=== PATIENT | female | born 1935 | race African-American/Black ===

== ENCOUNTER 2022-03-21 10:28 | Inpatient (IN) | payer MEDICARE, MEDICAID ==
[~2022-03-21] VITALS: Ht 152.4 cm; Wt 57.6 kg
[2022-03-21] MEDS ORDERED: NITROGLYCERIN 0.4MG TABLET SL SL PRN (11:00)
[2022-03-21] MEDS ORDERED: ASPIRIN 81MG TABLET PO ONE (11:00)
[2022-03-21 11:35] LABS: HEMATOCRIT. 46.7 % (36.0-48.0); HEMOGLOBIN. 15.6 g/dL (12.0-16.0); MEAN CORPUSCULAR HEMOGLOBIN 27.5 pg (28.0-32.0); MEAN CORPUSCULAR VOLUME 82.2 fL (81.0-99.0); MEAN PLATELET VOLUME 8.3 fl (7.4-10.4); PLATELET 206 x1000/uL (130-400); RED BLOOD CELL COUNT 5.68 mill/uL (4.2-5.4); RED CELL DISTRIBUTION WIDTH 19.9 % (11.6-14.6)
[2022-03-21 11:39] LABS: CHLORIDE 104 mEq/L (98-107)
[2022-03-21 11:41] LABS: PARTIAL THROMBOPLASTIN TIME < 21.0 sec (23.4-31.0); PROTHROMBIN TIME 11.2 sec (9.6-11.0)
[2022-03-21] MEDS ORDERED: HEPARIN 5000 UNITS/ML VIAL IV ONE (12:45)
[2022-03-21] MEDS ORDERED: HEPARIN 25,000 UNITS PREMIX 250 ML IV ONE (12:45)
[2022-03-21 12:46] LABS: PLATELET ESTIMATE NORMAL
[2022-03-21] MEDS ORDERED: HEPARIN 5000 UNITS/ML VIAL IV PRN ×2 (13:15)
[2022-03-21] MEDS ORDERED: HEPARIN 25,000 UNITS PREMIX 250 ML IV PRN (13:15)
[2022-03-21] MEDS ORDERED: HEPARIN 5000 UNITS/ML VIAL IV NR (13:30)
[2022-03-21] MEDS ORDERED: MORPHINE SULFATE 2 MG/ML CPJ (NOT FOR IM USE) IV PRN (17:15)
[2022-03-21] MEDS ORDERED: ONDANSETRON HCL 4MG/2ML INJ IV PRN (17:15)
[2022-03-21] MEDS ORDERED: ACETAMINOPHEN 325MG TABLET PO PRN (17:15)
[2022-03-21] MEDS ORDERED: CLONIDINE 0.1MG TABLET PO PRN (17:15)
[2022-03-21] MEDS ORDERED: DIPHENHYDRAMINE 50MG/ML VIAL IV PRN (17:15)
[2022-03-21] MEDS ORDERED: NALOXONE HCL 0.4MG/ML VIAL IV PRN (17:30)
[2022-03-21 22:07] VITALS: BP 115/58
[2022-03-21 22:45] VITALS: BP 115/85
[2022-03-22] VITALS (7 sets, daily range): BP systolic 116–166; BP diastolic 76–98
[2022-03-22] MEDS: IPRATROPIUM/ALBUTEROL 0.5-3(2.5)MG/3ML NEB HHN PRN (00:24)
[2022-03-22] MEDS ORDERED: DEXTROSE 50% WATER 50ML SYRINGE IV PRN (01:00)
[2022-03-22] MEDS ORDERED: ASPI-1497 PO (05:15)
[2022-03-22] MEDS ORDERED: METO-396 PO (05:15)
[2022-03-22] MEDS: BLOOD SUGAR DIAGNOSTIC STRIP TEST SCH ×4 (06:07→20:29)
[2022-03-22] MEDS: INSULIN LISPRO 100 UNITS/ML SUBCUT SCH ×4 (06:25→20:29)
[2022-03-22 06:42] LABS: BASOPHILS % 0.8 % (0.0-2.0); EOSINOPHILS % 1.9 % (0.0-5.0); HEMATOCRIT. 41.3 % (36.0-48.0); HEMOGLOBIN. 13.7 g/dL (12.0-16.0); LYMPHOCYTES % 14.3 % (20.0-50.0); MEAN CORPUSCULAR HEMOGLOBIN 27.5 pg (28.0-32.0); MEAN CORPUSCULAR VOLUME 82.7 fL (81.0-99.0); MEAN PLATELET VOLUME 8.1 fl (7.4-10.4); MONOCYTES % 10.3 % (2.0-8.0); NEUTROPHILS % 72.7 % (40.0-76.0); PLATELET 140 x1000/uL (130-400); RED BLOOD CELL COUNT 4.99 mill/uL (4.2-5.4); RED CELL DISTRIBUTION WIDTH 19.8 % (11.6-14.6)
[2022-03-22 06:46] LABS: CHLORIDE 108 mEq/L (98-107)
[2022-03-22] MEDS: FUROSEMIDE 40MG/4ML VIAL IV SCH (09:14)
[2022-03-22] MEDS: NITROGLYCERIN OINT 1GM/INCH UDPKT TD SCH ×2 (14:12→21:56)
[2022-03-22] MEDS ORDERED: CARVEDILOL 3.125 MG TABLET PO SCH (21:00)
[2022-03-23] VITALS (7 sets, daily range): BP systolic 148–173; BP diastolic 71–92
[2022-03-23] MEDS: BLOOD SUGAR DIAGNOSTIC STRIP TEST SCH ×4 (06:08→20:47)
[2022-03-23] MEDS: INSULIN LISPRO 100 UNITS/ML SUBCUT SCH ×4 (06:08→20:47)
[2022-03-23] MEDS: NITROGLYCERIN OINT 1GM/INCH UDPKT TD SCH ×3 (06:10→21:09)
[2022-03-23 06:18] LABS: BASOPHILS % 0.6 % (0.0-2.0); EOSINOPHILS % 0.9 % (0.0-5.0); HEMATOCRIT. 40.3 % (36.0-48.0); HEMOGLOBIN. 13.4 g/dL (12.0-16.0); LYMPHOCYTES % 10.6 % (20.0-50.0); MEAN CORPUSCULAR HEMOGLOBIN 27.4 pg (28.0-32.0); MEAN CORPUSCULAR VOLUME 82.3 fL (81.0-99.0); MEAN PLATELET VOLUME 8.4 fl (7.4-10.4); MONOCYTES % 9.5 % (2.0-8.0); NEUTROPHILS % 78.4 % (40.0-76.0); PLATELET 137 x1000/uL (130-400); RED CELL DISTRIBUTION WIDTH 19.6 % (11.6-14.6)
[2022-03-23] MEDS: FUROSEMIDE 40MG/4ML VIAL IV SCH (10:12)
[2022-03-23] MEDS: SPIRONOLACTONE 25MG TABLET PO SCH (10:12)
[2022-03-23] MEDS: ASPIRIN 81MG EC TABLET PO SCH (10:12)
[2022-03-23] MEDS ORDERED: MAGNESIUM 2 G PREMIX 50 ML IV NR (10:15)
[2022-03-23 12:04] LABS: BG BASE EXCESS 6.6 mmol/L (-2.0-2.0); BG CARBOXYHEMOGLOBIN 0.6 % (0.5-1.5); BG DEOXYHEMOGLOBIN 26.4 % (0.0-5.0); BG FRACTION INSPIRED OXYGEN 21; BG HCO3 ACT 37.8 mmol/L (22.0-26.0); BG METHEMOGLOBIN 0.3 % (0.0-1.5); BG OXYGEN SATURATION 73.4 % (92.0-98.5); BG OXYHEMOGLOBIN 72.7 % (94.0-97.0); BG PCO2 87.9 mmHg (35.0-45.0); BG PH 7.251 (7.350-7.450); BG PO2 39.6 mmHg (75.0-100.0); BG SAMPLE SITE RIGHT RADIAL; BG TOTAL HEMOGLOBIN 15.6 g/dL (12.0-18.0); BG VENT MODE ROOM AIR
[2022-03-23 15:14] LABS: BG BASE EXCESS 11.4 mmol/L (-2.0-2.0); BG CARBOXYHEMOGLOBIN 0.3 % (0.5-1.5); BG DEOXYHEMOGLOBIN 1.8 % (0.0-5.0); BG FRACTION INSPIRED OXYGEN 50; BG HCO3 ACT 42.4 mmol/L (22.0-26.0); BG METHEMOGLOBIN 0.3 % (0.0-1.5); BG OXYGEN SATURATION 98.2 % (92.0-98.5); BG OXYHEMOGLOBIN 97.6 % (94.0-97.0); BG PCO2 90.1 mmHg (35.0-45.0); BG PO2 134.8 mmHg (75.0-100.0); BG SAMPLE SITE LEFT RADIAL; BG TOTAL HEMOGLOBIN 14.8 g/dL (12.0-18.0); BG TOTAL RESPIRATORY RATE 18 b/min; BG VENT MODE MASK - BIPAP
[2022-03-23] MEDS ORDERED: ACETAZOLAMIDE 500MG ER CAPSULE PO NR (16:00)
[2022-03-23] MEDS: LOSARTAN POTASSIUM 50 MG TABLET PO SCH (17:00)
[2022-03-23 18:15] LABS: BG BASE EXCESS 5.9 mmol/L (-2.0-2.0); BG CARBOXYHEMOGLOBIN 0.9 % (0.5-1.5); BG DEOXYHEMOGLOBIN 1.6 % (0.0-5.0); BG METHEMOGLOBIN 0.4 % (0.0-1.5); BG OXYGEN SATURATION 98.4 % (92.0-98.5); BG OXYHEMOGLOBIN 97.1 % (94.0-97.0); BG PCO2 88.3 mmHg (35.0-45.0); BG PO2 134.7 mmHg (75.0-100.0); BG SAMPLE SITE LEFT BRACHIAL; BG VENT MODE MASK - BIPAP
[2022-03-23] MEDS: METHYLPREDNISOLONE SOD SUCC 40 MG/ML VIAL IV SCH (19:18)
[2022-03-23] MEDS: CARVEDILOL 6.25 MG TABLET PO SCH (20:47)
[2022-03-24 00:10] VITALS: BP 140/98
[2022-03-24 04:10] VITALS: BP 124/74
[2022-03-24] MEDS: METHYLPREDNISOLONE SOD SUCC 40 MG/ML VIAL IV SCH ×2 (05:50→18:19)
[2022-03-24] MEDS: NITROGLYCERIN OINT 1GM/INCH UDPKT TD SCH (05:50)
[2022-03-24] MEDS: INSULIN LISPRO 100 UNITS/ML SUBCUT SCH ×4 (06:21→20:28)
[2022-03-24] MEDS: BLOOD SUGAR DIAGNOSTIC STRIP TEST SCH ×4 (06:21→20:28)
[2022-03-24 07:16] LABS: BASOPHILS % 0.4 % (0.0-2.0); EOSINOPHILS % 0.9 % (0.0-5.0); HEMATOCRIT. 41.6 % (36.0-48.0); HEMOGLOBIN. 13.9 g/dL (12.0-16.0); LYMPHOCYTES % 7.2 % (20.0-50.0); MEAN CORPUSCULAR HEMOGLOBIN 27.3 pg (28.0-32.0); MEAN CORPUSCULAR VOLUME 81.6 fL (81.0-99.0); MEAN PLATELET VOLUME 8.8 fl (7.4-10.4); NEUTROPHILS % 89.5 % (40.0-76.0); PLATELET 123 x1000/uL (130-400); RED CELL DISTRIBUTION WIDTH 19.2 % (11.6-14.6)
[2022-03-24 08:00] VITALS: BP 131/76
[2022-03-24] MEDS: LOSARTAN POTASSIUM 50 MG TABLET PO SCH ×2 (08:04→17:40)
[2022-03-24] MEDS: SPIRONOLACTONE 25MG TABLET PO SCH (08:04)
[2022-03-24] MEDS: FUROSEMIDE 40MG/4ML VIAL IV SCH (08:05)
[2022-03-24] MEDS: CARVEDILOL 6.25 MG TABLET PO SCH ×2 (08:05→20:28)
[2022-03-24] MEDS: ASPIRIN 81MG EC TABLET PO SCH (08:05)
[2022-03-24 08:47] LABS: BG BASE EXCESS 7.6 mmol/L (-2.0-2.0); BG CARBOXYHEMOGLOBIN 0.2 % (0.5-1.5); BG DEOXYHEMOGLOBIN 1.9 % (0.0-5.0); BG FRACTION INSPIRED OXYGEN 32; BG HCO3 ACT 38.2 mmol/L (22.0-26.0); BG METHEMOGLOBIN 0.3 % (0.0-1.5); BG OXYGEN SATURATION 98.1 % (92.0-98.5); BG OXYHEMOGLOBIN 97.6 % (94.0-97.0); BG PCO2 88.2 mmHg (35.0-45.0); BG PH 7.255 (7.350-7.450); BG PO2 125.4 mmHg (75.0-100.0); BG SAMPLE SITE LEFT RADIAL; BG TOTAL HEMOGLOBIN 13.9 g/dL (12.0-18.0); BG VENT MODE NASAL CANNULA
[2022-03-24 12:00] VITALS: BP 124/79
[2022-03-24 16:00] VITALS: BP 111/62
[2022-03-24] MEDS: IPRATROPIUM/ALBUTEROL 0.5-3(2.5)MG/3ML NEB HHN PRN (16:08)
[2022-03-24 16:41] LABS: BG BASE EXCESS 9.7 mmol/L (-2.0-2.0); BG CARBOXYHEMOGLOBIN 0.5 % (0.5-1.5); BG DEOXYHEMOGLOBIN 3.9 % (0.0-5.0); BG HCO3 ACT 37.9 mmol/L (22.0-26.0); BG METHEMOGLOBIN 0.1 % (0.0-1.5); BG OXYGEN SATURATION 96.1 % (92.0-98.5); BG OXYHEMOGLOBIN 95.5 % (94.0-97.0); BG PCO2 67.4 mmHg (35.0-45.0); BG PH 7.368 (7.350-7.450); BG PO2 86.6 mmHg (75.0-100.0); BG SAMPLE SITE RIGHT BRACHIAL; BG TOTAL HEMOGLOBIN 14.5 g/dL (12.0-18.0); BG VENT MODE MASK - BIPAP
[2022-03-24 20:00] VITALS: BP 124/66
[2022-03-25] VITALS (14 sets, daily range): BP systolic 107–146; BP diastolic 51–91
[2022-03-25 05:50] LABS: HEMATOCRIT. 42.1 % (36.0-48.0); HEMOGLOBIN. 13.8 g/dL (12.0-16.0); MEAN CORPUSCULAR HEMOGLOBIN 27.4 pg (28.0-32.0); MEAN CORPUSCULAR VOLUME 83.6 fL (81.0-99.0); MEAN PLATELET VOLUME 8.9 fl (7.4-10.4); PLATELET 147 x1000/uL (130-400); RED BLOOD CELL COUNT 5.04 mill/uL (4.2-5.4); RED CELL DISTRIBUTION WIDTH 19.3 % (11.6-14.6)
[2022-03-25] MEDS: METHYLPREDNISOLONE SOD SUCC 40 MG/ML VIAL IV SCH ×2 (06:00→17:28)
[2022-03-25] MEDS: BLOOD SUGAR DIAGNOSTIC STRIP TEST SCH ×4 (07:30→21:45)
[2022-03-25] MEDS: INSULIN LISPRO 100 UNITS/ML SUBCUT SCH ×4 (08:00→21:00)
[2022-03-25] MEDS: ASPIRIN 81MG EC TABLET PO SCH (08:54)
[2022-03-25] MEDS: LOSARTAN POTASSIUM 50 MG TABLET PO SCH ×2 (08:55→17:29)
[2022-03-25] MEDS: CARVEDILOL 6.25 MG TABLET PO SCH ×2 (08:57→21:46)
[2022-03-25] MEDS: FUROSEMIDE 40MG/4ML VIAL IV SCH (08:58)
[2022-03-25] MEDS: SPIRONOLACTONE 25MG TABLET PO SCH (08:58)
[2022-03-25 14:56] LABS: BG BASE EXCESS 9.1 mmol/L (-2.0-2.0); BG CARBOXYHEMOGLOBIN 1.1 % (0.5-1.5); BG DEOXYHEMOGLOBIN 4.1 % (0.0-5.0); BG FRACTION INSPIRED OXYGEN 28; BG HCO3 ACT 38.9 mmol/L (22.0-26.0); BG METHEMOGLOBIN 0.2 % (0.0-1.5); BG OXYGEN SATURATION 95.8 % (92.0-98.5); BG OXYHEMOGLOBIN 94.6 % (94.0-97.0); BG PCO2 80.6 mmHg (35.0-45.0); BG PH 7.302 (7.350-7.450); BG PO2 87.5 mmHg (75.0-100.0); BG SAMPLE SITE RIGHT BRACHIAL; BG TOTAL HEMOGLOBIN 14.4 g/dL (12.0-18.0); BG VENT MODE NASAL CANNULA
[2022-03-25 17:25] LABS: PLATELET ESTIMATE NORMAL
[2022-03-25 17:38] LABS: BG BASE EXCESS 7.2 mmol/L (-2.0-2.0); BG CARBOXYHEMOGLOBIN 1.2 % (0.5-1.5); BG FRACTION INSPIRED OXYGEN 40; BG HCO3 ACT 35.9 mmol/L (22.0-26.0); BG METHEMOGLOBIN 0.3 % (0.0-1.5); BG OXYGEN SATURATION 94.9 % (92.0-98.5); BG OXYHEMOGLOBIN 93.5 % (94.0-97.0); BG PCO2 69.6 mmHg (35.0-45.0); BG PO2 76.9 mmHg (75.0-100.0); BG TOTAL HEMOGLOBIN 14.5 g/dL (12.0-18.0); BG VENT MODE MASK - BIPAP
[2022-03-25 22:18] LABS: BG BASE EXCESS 9.2 mmol/L (-2.0-2.0); BG CARBOXYHEMOGLOBIN 0.9 % (0.5-1.5); BG DEOXYHEMOGLOBIN 2.3 % (0.0-5.0); BG FRACTION INSPIRED OXYGEN 40; BG HCO3 ACT 36.9 mmol/L (22.0-26.0); BG METHEMOGLOBIN 0.2 % (0.0-1.5); BG OXYGEN SATURATION 97.7 % (92.0-98.5); BG OXYHEMOGLOBIN 96.6 % (94.0-97.0); BG PCO2 63.5 mmHg (35.0-45.0); BG PH 7.382 (7.350-7.450); BG PO2 103.1 mmHg (75.0-100.0); BG TOTAL HEMOGLOBIN 14.4 g/dL (12.0-18.0); BG VENT MODE MASK - BIPAP
[2022-03-26] VITALS (18 sets, daily range): BP systolic 64–153; BP diastolic 27–99
[2022-03-26 06:54] LABS: HEMATOCRIT. 42.7 % (36.0-48.0); HEMOGLOBIN. 14.3 g/dL (12.0-16.0); MEAN CORPUSCULAR HEMOGLOBIN 27.3 pg (28.0-32.0); MEAN CORPUSCULAR VOLUME 81.3 fL (81.0-99.0); PLATELET 164 x1000/uL (130-400); RED BLOOD CELL COUNT 5.25 mill/uL (4.2-5.4); RED CELL DISTRIBUTION WIDTH 19.4 % (11.6-14.6)
[2022-03-26] MEDS: INSULIN LISPRO 100 UNITS/ML SUBCUT SCH ×4 (07:55→22:05)
[2022-03-26] MEDS: BLOOD SUGAR DIAGNOSTIC STRIP TEST SCH ×4 (07:55→22:05)
[2022-03-26] MEDS: METHYLPREDNISOLONE SOD SUCC 40 MG/ML VIAL IV SCH (07:56)
[2022-03-26] MEDS: SPIRONOLACTONE 25MG TABLET PO SCH (08:58)
[2022-03-26] MEDS: LOSARTAN POTASSIUM 50 MG TABLET PO SCH (08:58)
[2022-03-26] MEDS: ASPIRIN 81MG EC TABLET PO SCH (08:58)
[2022-03-26] MEDS: CARVEDILOL 6.25 MG TABLET PO SCH (08:59)
[2022-03-26 10:38] LABS: PHOSPHORUS 4.1 mg/dL (2.5-4.9)
[2022-03-26 12:24] LABS: BG BASE EXCESS 10.7 mmol/L (-2.0-2.0); BG DEOXYHEMOGLOBIN 18.5 % (0.0-5.0); BG FRACTION INSPIRED OXYGEN 24; BG HCO3 ACT 39.8 mmol/L (22.0-26.0); BG METHEMOGLOBIN 0.4 % (0.0-1.5); BG OXYGEN SATURATION 81.2 % (92.0-98.5); BG OXYHEMOGLOBIN 80.1 % (94.0-97.0); BG PCO2 75.2 mmHg (35.0-45.0); BG PH 7.342 (7.350-7.450); BG SAMPLE SITE RIGHT RADIAL; BG TOTAL HEMOGLOBIN 14.3 g/dL (12.0-18.0); BG VENT MODE NASAL CANNULA
[2022-03-26 14:20] LABS: PLATELET ESTIMATE NORMAL
[2022-03-26] MEDS ORDERED: AMLODIPINE 2.5MG TABLET PO SCH (21:00)
[2022-03-26] MEDS: AMLODIPINE 5MG TABLET PO SCH (22:01)
[2022-03-27] VITALS (25 sets, daily range): BP systolic 84–173; BP diastolic 39–146
[2022-03-27 07:09] LABS: BASOPHILS % 0.3 % (0.0-2.0); EOSINOPHILS % 1.2 % (0.0-5.0); HEMATOCRIT. 41.5 % (36.0-48.0); HEMOGLOBIN. 13.8 g/dL (12.0-16.0); LYMPHOCYTES % 7.7 % (20.0-50.0); MEAN CORPUSCULAR VOLUME 81.2 fL (81.0-99.0); MEAN PLATELET VOLUME 8.6 fl (7.4-10.4); MONOCYTES % 8.4 % (2.0-8.0); NEUTROPHILS % 82.4 % (40.0-76.0); PLATELET 155 x1000/uL (130-400); RED BLOOD CELL COUNT 5.11 mill/uL (4.2-5.4); RED CELL DISTRIBUTION WIDTH 19.1 % (11.6-14.6)
[2022-03-27] MEDS: BLOOD SUGAR DIAGNOSTIC STRIP TEST SCH ×4 (07:27→20:36)
[2022-03-27] MEDS: INSULIN LISPRO 100 UNITS/ML SUBCUT SCH ×4 (07:27→20:36)
[2022-03-27] MEDS: ASPIRIN 81MG EC TABLET PO SCH (08:28)
[2022-03-27] MEDS: PREDNISONE 20MG TABLET PO SCH (08:28)
[2022-03-27] MEDS: AMLODIPINE 5MG TABLET PO SCH ×2 (08:29→20:36)
[2022-03-27 08:58] LABS: BG BASE EXCESS 7.4 mmol/L (-2.0-2.0); BG CARBOXYHEMOGLOBIN 0.4 % (0.5-1.5); BG DEOXYHEMOGLOBIN 1.4 % (0.0-5.0); BG FRACTION INSPIRED OXYGEN 35; BG HCO3 ACT 32.8 mmol/L (22.0-26.0); BG METHEMOGLOBIN 0.3 % (0.0-1.5); BG OXYGEN SATURATION 98.6 % (92.0-98.5); BG OXYHEMOGLOBIN 97.9 % (94.0-97.0); BG PCO2 49.7 mmHg (35.0-45.0); BG PH 7.438 (7.350-7.450); BG SAMPLE SITE RIGHT BRACHIAL; BG TOTAL HEMOGLOBIN 13.4 g/dL (12.0-18.0); BG TOTAL RESPIRATORY RATE 32 b/min; BG VENT MODE MASK - BIPAP
[2022-03-27] MEDS ORDERED: SODIUM CHLORIDE 0.9% 500 ML IV ONE (09:15)
[2022-03-27] MEDS: IPRATROPIUM/ALBUTEROL 0.5-3(2.5)MG/3ML NEB HHN PRN (12:40)
[2022-03-27 16:04] LABS: BG BASE EXCESS 7.2 mmol/L (-2.0-2.0); BG CARBOXYHEMOGLOBIN 0.5 % (0.5-1.5); BG DEOXYHEMOGLOBIN 1.4 % (0.0-5.0); BG FRACTION INSPIRED OXYGEN 32; BG HCO3 ACT 33.6 mmol/L (22.0-26.0); BG METHEMOGLOBIN 0.3 % (0.0-1.5); BG OXYGEN SATURATION 98.6 % (92.0-98.5); BG OXYHEMOGLOBIN 97.8 % (94.0-97.0); BG PCO2 53.9 mmHg (35.0-45.0); BG PH 7.412 (7.350-7.450); BG PO2 144.5 mmHg (75.0-100.0); BG SAMPLE SITE RIGHT BRACHIAL; BG TOTAL HEMOGLOBIN 14.6 g/dL (12.0-18.0); BG VENT MODE NASAL CANNULA
[2022-03-28] VITALS (17 sets, daily range): BP systolic 94–158; BP diastolic 18–87
[2022-03-28] MEDS: BLOOD SUGAR DIAGNOSTIC STRIP TEST SCH ×4 (07:30→21:01)
[2022-03-28] MEDS: INSULIN LISPRO 100 UNITS/ML SUBCUT SCH ×4 (08:00→21:01)
[2022-03-28] MEDS: AMLODIPINE 5MG TABLET PO SCH (09:20)
[2022-03-28] MEDS: PREDNISONE 20MG TABLET PO SCH (09:20)
[2022-03-28] MEDS: ASPIRIN 81MG EC TABLET PO SCH (09:20)
[2022-03-28 09:47] LABS: BG BASE EXCESS 5.9 mmol/L (-2.0-2.0); BG DEOXYHEMOGLOBIN 2.5 % (0.0-5.0); BG FRACTION INSPIRED OXYGEN 30; BG METHEMOGLOBIN 0.2 % (0.0-1.5); BG OXYGEN SATURATION 97.5 % (92.0-98.5); BG OXYHEMOGLOBIN 96.3 % (94.0-97.0); BG PCO2 57.8 mmHg (35.0-45.0); BG PH 7.375 (7.350-7.450); BG PO2 100.3 mmHg (75.0-100.0); BG SAMPLE SITE RIGHT BRACHIAL; BG TOTAL HEMOGLOBIN 15.6 g/dL (12.0-18.0); BG VENT MODE NASAL CANNULA
[2022-03-28 10:48] LABS: HEMATOCRIT. 44.4 % (36.0-48.0); HEMOGLOBIN. 14.9 g/dL (12.0-16.0); MEAN CORPUSCULAR HEMOGLOBIN 27.2 pg (28.0-32.0); MEAN CORPUSCULAR VOLUME 81.1 fL (81.0-99.0); MEAN PLATELET VOLUME 8.6 fl (7.4-10.4); PLATELET 155 x1000/uL (130-400); RED BLOOD CELL COUNT 5.47 mill/uL (4.2-5.4); RED CELL DISTRIBUTION WIDTH 19.4 % (11.6-14.6)
[2022-03-28 13:23] LABS: NUCLEATED RED BLOOD CELLS 2 /100 WBC; PLATELET ESTIMATE NORMAL
[2022-03-28] MEDS ORDERED: SODIUM CHLORIDE 0.9% 500 ML IV ONE (16:00)
[2022-03-28] MEDS: AMLODIPINE 2.5MG TABLET PO SCH (21:02)
[2022-03-29] VITALS: BP 143/66
[2022-03-29 04:00] VITALS: BP 157/87
[2022-03-29 08:00] VITALS: BP 167/87
[2022-03-29] MEDS: INSULIN LISPRO 100 UNITS/ML SUBCUT SCH ×4 (08:00→21:41)
[2022-03-29] MEDS: BLOOD SUGAR DIAGNOSTIC STRIP TEST SCH ×4 (08:29→21:41)
[2022-03-29] MEDS: PREDNISONE 20MG TABLET PO SCH (08:49)
[2022-03-29] MEDS: ASPIRIN 81MG EC TABLET PO SCH (08:49)
[2022-03-29] MEDS: AMLODIPINE 2.5MG TABLET PO SCH ×2 (08:49→21:41)
[2022-03-29 09:24] LABS: HEMATOCRIT. 46.3 % (36.0-48.0); HEMOGLOBIN. 15.4 g/dL (12.0-16.0); MEAN CORPUSCULAR HEMOGLOBIN 27.2 pg (28.0-32.0); MEAN CORPUSCULAR VOLUME 81.7 fL (81.0-99.0); MEAN PLATELET VOLUME 8.7 fl (7.4-10.4); PLATELET 162 x1000/uL (130-400); RED BLOOD CELL COUNT 5.66 mill/uL (4.2-5.4); RED CELL DISTRIBUTION WIDTH 19.2 % (11.6-14.6)
[2022-03-29 11:46] VITALS: BP 135/68
[2022-03-29 15:17] LABS: PLATELET ESTIMATE NORMAL
[2022-03-29 16:00] VITALS: BP 146/52
[2022-03-29] MEDS: LOSARTAN POTASSIUM 50 MG TABLET PO SCH (17:00)
[2022-03-29 20:00] VITALS: BP 127/61
[2022-03-30] VITALS: BP 154/97
[2022-03-30 04:00] VITALS: BP 130/94
[2022-03-30] MEDS: BLOOD SUGAR DIAGNOSTIC STRIP TEST SCH ×3 (07:33→17:38)
[2022-03-30] MEDS: INSULIN LISPRO 100 UNITS/ML SUBCUT SCH ×3 (07:33→17:39)
[2022-03-30 08:00] VITALS: BP 143/50
[2022-03-30] MEDS: ASPIRIN 81MG EC TABLET PO SCH (08:40)
[2022-03-30] MEDS: LOSARTAN POTASSIUM 50 MG TABLET PO SCH ×2 (08:40→16:18)
[2022-03-30] MEDS: PREDNISONE 20MG TABLET PO SCH (08:40)
[2022-03-30] MEDS: AMLODIPINE 2.5MG TABLET PO SCH ×2 (08:41→21:00)
[2022-03-30 12:18] VITALS: BP 132/64
[2022-03-30 15:32] VITALS: BP 125/60
[2022-03-30 20:00] VITALS: BP 131/48
[2022-03-31] VITALS: BP 137/65
[2022-03-31 04:00] VITALS: BP 139/73
[2022-03-31] MEDS: BLOOD SUGAR DIAGNOSTIC STRIP TEST SCH ×4 (07:20→21:29)
[2022-03-31] MEDS: INSULIN LISPRO 100 UNITS/ML SUBCUT SCH ×4 (07:50→21:33)
[2022-03-31 08:00] VITALS: BP 134/58
[2022-03-31] MEDS: AMLODIPINE 2.5MG TABLET PO SCH ×2 (09:09→21:00)
[2022-03-31] MEDS: ASPIRIN 81MG EC TABLET PO SCH (09:09)
[2022-03-31] MEDS: LOSARTAN POTASSIUM 50 MG TABLET PO SCH ×2 (09:09→17:00)
[2022-03-31] MEDS: PREDNISONE 20MG TABLET PO SCH (09:12)
[2022-03-31 12:00] VITALS: BP 132/53
[2022-03-31 16:00] VITALS: BP 128/52
[2022-03-31 20:00] VITALS: BP 104/59
[2022-04-01] VITALS: BP 142/64
[2022-04-01 04:00] VITALS: BP 149/59
[2022-04-01] MEDS: BLOOD SUGAR DIAGNOSTIC STRIP TEST SCH ×4 (06:25→21:00)
[2022-04-01] MEDS: INSULIN LISPRO 100 UNITS/ML SUBCUT SCH ×4 (07:14→22:33)
[2022-04-01 07:53] LABS: HEMATOCRIT. 40.2 % (36.0-48.0); HEMOGLOBIN. 13.6 g/dL (12.0-16.0); MEAN CORPUSCULAR HEMOGLOBIN 27.6 pg (28.0-32.0); MEAN CORPUSCULAR VOLUME 81.6 fL (81.0-99.0); MEAN PLATELET VOLUME 8.8 fl (7.4-10.4); PLATELET 133 x1000/uL (130-400); RED BLOOD CELL COUNT 4.93 mill/uL (4.2-5.4); RED CELL DISTRIBUTION WIDTH 18.6 % (11.6-14.6)
[2022-04-01 08:00] VITALS: BP 148/67
[2022-04-01 08:07] LABS: CHLORIDE 99 mEq/L (98-107)
[2022-04-01] MEDS: AMLODIPINE 2.5MG TABLET PO SCH ×2 (09:37→22:30)
[2022-04-01] MEDS: ASPIRIN 81MG EC TABLET PO SCH (09:37)
[2022-04-01] MEDS: PREDNISONE 10MG TABLET PO SCH (09:37)
[2022-04-01] MEDS: LOSARTAN POTASSIUM 50 MG TABLET PO SCH ×2 (09:39→18:26)
[2022-04-01 12:00] VITALS: BP 132/99
[2022-04-01] MEDS: FUROSEMIDE 20MG TABLET PO SCH (14:13)
[2022-04-01 16:00] VITALS: BP 153/67
[2022-04-01 18:54] LABS: PLATELET ESTIMATE NORMAL
[2022-04-01 20:00] VITALS: BP 147/60
[2022-04-02] VITALS (7 sets, daily range): BP systolic 127–161; BP diastolic 53–88
[2022-04-02] MEDS: BLOOD SUGAR DIAGNOSTIC STRIP TEST SCH ×4 (07:19→21:00)
[2022-04-02 07:27] LABS: CHLORIDE 102 mEq/L (98-107)
[2022-04-02] MEDS: INSULIN LISPRO 100 UNITS/ML SUBCUT SCH ×4 (07:50→21:27)
[2022-04-02] MEDS: AMLODIPINE 2.5MG TABLET PO SCH ×2 (10:15→21:26)
[2022-04-02] MEDS: PREDNISONE 10MG TABLET PO SCH (10:15)
[2022-04-02] MEDS: FUROSEMIDE 20MG TABLET PO SCH (10:15)
[2022-04-02] MEDS: ASPIRIN 81MG EC TABLET PO SCH (10:15)
[2022-04-02] MEDS: LOSARTAN POTASSIUM 50 MG TABLET PO SCH ×2 (12:00→19:46)
[2022-04-03 04:00] VITALS: BP 158/75
[2022-04-03] MEDS: BLOOD SUGAR DIAGNOSTIC STRIP TEST SCH ×4 (07:01→21:00)
[2022-04-03] MEDS: INSULIN LISPRO 100 UNITS/ML SUBCUT SCH ×4 (07:50→21:20)
[2022-04-03 08:00] VITALS: BP 120/63
[2022-04-03] MEDS: ASPIRIN 81MG EC TABLET PO SCH (08:43)
[2022-04-03] MEDS: PREDNISONE 10MG TABLET PO SCH (08:43)
[2022-04-03] MEDS: FUROSEMIDE 20MG TABLET PO SCH (08:43)
[2022-04-03] MEDS: LOSARTAN POTASSIUM 50 MG TABLET PO SCH ×2 (08:43→15:40)
[2022-04-03] MEDS: AMLODIPINE 2.5MG TABLET PO SCH ×2 (08:43→21:19)
[2022-04-03 12:00] VITALS: BP 159/66
[2022-04-03 16:00] VITALS: BP 149/52
[2022-04-03 20:00] VITALS: BP 159/73
[2022-04-04] VITALS (7 sets, daily range): BP systolic 121–155; BP diastolic 62–89
[2022-04-04] MEDS: BLOOD SUGAR DIAGNOSTIC STRIP TEST SCH ×4 (07:20→20:20)
[2022-04-04] MEDS: LOSARTAN POTASSIUM 50 MG TABLET PO SCH ×2 (09:25→17:56)
[2022-04-04] MEDS: FUROSEMIDE 20MG TABLET PO SCH (09:25)
[2022-04-04] MEDS: ASPIRIN 81MG EC TABLET PO SCH (09:25)
[2022-04-04] MEDS: PREDNISONE 10MG TABLET PO SCH (09:25)
[2022-04-04] MEDS: AMLODIPINE 2.5MG TABLET PO SCH ×2 (09:25→20:24)
[2022-04-04] MEDS: INSULIN LISPRO 100 UNITS/ML SUBCUT SCH ×4 (09:30→20:31)
[2022-04-04 10:02] LABS: VITAMIN B12 SERUM 1176 pg/mL (211-911)
[2022-04-04] MEDS ORDERED: FOLIC ACID 1MG TABLET PO SCH (10:30)
[2022-04-07 14:16] LABS: 25-HYDROXY VITAMIN D3 33 ng/mL (.)
== END 2022-04-04 22:39 | DRG 190 ==
LOC: ER 10:41 → 3WST 13:02 → 5EST 03-25 01:19 → 6EST 03-30 16:31
PROVIDERS: ADMIT Internal Medicine; ATTEND Internal Medicine
PROC: 4B02XSZ Measurement of Cardiac Pacemaker, External Approach (ICD-10-PCS; 2022-03-21)
PROC: 5A09457 Assistance with Respiratory Ventilation, 24-96 Consecutive Hours, Continuous Positive Airway Pressure (ICD-10-PCS; principal; 2022-03-23)
DX: I21.4 Non-ST elevation (NSTEMI) myocardial infarction (principal); J96.21 Acute and chronic respiratory failure with hypoxia; G93.41 Metabolic encephalopathy; I50.23 Acute on chronic systolic (congestive) heart failure; E46 Unspecified protein-calorie malnutrition; I27.21 Secondary pulmonary arterial hypertension; E88.09 Other disorders of plasma-protein metabolism, not elsewhere classified; H90.3 Sensorineural hearing loss, bilateral; I11.0 Hypertensive heart disease with heart failure; N17.9 Acute kidney failure, unspecified; J44.1 Chronic obstructive pulmonary disease with (acute) exacerbation; I42.0 Dilated cardiomyopathy; I42.2 Other hypertrophic cardiomyopathy; I08.1 Rheumatic disorders of both mitral and tricuspid valves; I25.10 Atherosclerotic heart disease of native coronary artery without angina pectoris; R26.9 Unspecified abnormalities of gait and mobility; J96.22 Acute and chronic respiratory failure with hypercapnia; R47.1 Dysarthria and anarthria; R49.0 Dysphonia; E86.0 Dehydration; R13.10 Dysphagia, unspecified; Z82.49 Family history of ischemic heart disease and other diseases of the circulatory system; Z79.899 Other long term (current) drug therapy; Z87.891 Personal history of nicotine dependence; I25.2 Old myocardial infarction; Z95.0 Presence of cardiac pacemaker
CPT/HCPCS: 36415; 36600; 71045; 76770; 78580; 80048; 80053; 82140; 82306; 82375; 82550; 82607; 82746; 82805; 82962; 83036; 83735; 83880; 84100; 84443; 84484; 85025; 85379; 86850; 86900; 93005; 93306; 93970; 94660; 97116; 97162; 97166; 97530; 97535; 99291; J1644; J1815; J1940; J2920; J3475; J7512

== ENCOUNTER 2022-04-04 22:30 | Inpatient (IN) | payer MEDICARE, MEDICAID ==
[~2022-04-04] VITALS: Ht 152.4 cm; Wt 54.4 kg
[2022-04-04 22:30] VITALS: BP 137/63
[~2022-04-04 22:30] MED LIST: ASPI-1497 PO; METO-396 PO
[2022-04-04 23:00] VITALS: BP 137/63
[2022-04-05] MEDS ORDERED: IPRATROPIUM/ALBUTEROL 0.5-3(2.5)MG/3ML NEB HHN PRN (00:30)
[2022-04-05] MEDS ORDERED: CLONIDINE 0.1MG TABLET PO PRN (00:30)
[2022-04-05] MEDS ORDERED: DEXTROSE 50% WATER 50ML SYRINGE IV PRN (00:30)
[2022-04-05] MEDS ORDERED: ONDANSETRON HCL 4MG TABLET PO PRN (00:30)
[2022-04-05] MEDS ORDERED: DIPHENHYDRAMINE 25MG CAPSULE PO PRN (00:30)
[2022-04-05] MEDS: BLOOD SUGAR DIAGNOSTIC STRIP TEST SCH ×4 (06:30→21:36)
[2022-04-05 06:48] LABS: HEMATOCRIT. 39.5 % (36.0-48.0); HEMOGLOBIN. 13.4 g/dL (12.0-16.0); MEAN CORPUSCULAR HEMOGLOBIN 27.3 pg (28.0-32.0); MEAN CORPUSCULAR VOLUME 80.8 fL (81.0-99.0); MEAN PLATELET VOLUME 8.7 fl (7.4-10.4); PLATELET 137 x1000/uL (130-400); RED BLOOD CELL COUNT 4.89 mill/uL (4.2-5.4); RED CELL DISTRIBUTION WIDTH 19.3 % (11.6-14.6)
[2022-04-05 07:12] LABS: CHLORIDE 100 mEq/L (98-107)
[2022-04-05 08:00] VITALS: BP 151/63
[2022-04-05] MEDS: INSULIN LISPRO 100 UNITS/ML SUBCUT SCH ×4 (09:00→21:42)
[2022-04-05] MEDS: FOLIC ACID 1MG TABLET PO SCH (09:57)
[2022-04-05] MEDS: ASPIRIN 81MG EC TABLET PO SCH (09:57)
[2022-04-05] MEDS: FUROSEMIDE 20MG TABLET PO SCH (09:57)
[2022-04-05] MEDS: PREDNISONE 10MG TABLET PO SCH (09:57)
[2022-04-05] MEDS: LOSARTAN POTASSIUM 50 MG TABLET PO SCH ×2 (09:58→17:48)
[2022-04-05] MEDS: AMLODIPINE 2.5MG TABLET PO SCH ×2 (09:58→21:40)
[2022-04-05 13:44] LABS: PLATELET ESTIMATE NORMAL
[2022-04-05 20:00] VITALS: BP 158/67
[2022-04-06] MEDS: BLOOD SUGAR DIAGNOSTIC STRIP TEST SCH ×4 (06:26→21:10)
[2022-04-06 06:56] LABS: HEMATOCRIT. 44.6 % (36.0-48.0); HEMOGLOBIN. 14.9 g/dL (12.0-16.0); MEAN CORPUSCULAR HEMOGLOBIN 27.2 pg (28.0-32.0); MEAN CORPUSCULAR VOLUME 81.6 fL (81.0-99.0); MEAN PLATELET VOLUME 8.7 fl (7.4-10.4); PLATELET 136 x1000/uL (130-400); RED BLOOD CELL COUNT 5.47 mill/uL (4.2-5.4); RED CELL DISTRIBUTION WIDTH 18.6 % (11.6-14.6)
[2022-04-06 08:00] VITALS: BP 159/69
[2022-04-06] MEDS: INSULIN LISPRO 100 UNITS/ML SUBCUT SCH ×4 (09:00→21:49)
[2022-04-06] MEDS: FOLIC ACID 1MG TABLET PO SCH (09:49)
[2022-04-06] MEDS: ASPIRIN 81MG EC TABLET PO SCH (09:49)
[2022-04-06] MEDS: FUROSEMIDE 20MG TABLET PO SCH (09:49)
[2022-04-06] MEDS: PREDNISONE 10MG TABLET PO SCH (09:49)
[2022-04-06] MEDS: LOSARTAN POTASSIUM 50 MG TABLET PO SCH ×2 (09:49→16:57)
[2022-04-06] MEDS: AMLODIPINE 2.5MG TABLET PO SCH ×2 (09:50→21:10)
[2022-04-06 13:49] LABS: PLATELET ESTIMATE NORMAL
[2022-04-06 20:00] VITALS: BP 125/64
[2022-04-07 04:30] LABS: CLARITY URINE CLOUDY (CLEAR); COLOR URINE YELLOW (YELLOW); KETONES URINE NEGATIVE (NEGATIVE); LEUKOCYTE ESTERASE URINE 1+ (NEGATIVE); NITRITE URINE NEGATIVE (NEGATIVE); OCCULT BLOOD URINE TRACE (NEGATIVE); PROTEIN URINE 1+ (NEGATIVE); SPECIFIC GRAVITY URINE 1.015 (1.005-1.030)
[2022-04-07] MEDS: ACETAMINOPHEN 325MG TABLET PO PRN (05:15)
[2022-04-07] MEDS: BLOOD SUGAR DIAGNOSTIC STRIP TEST SCH ×4 (06:31→21:00)
[2022-04-07 06:42] LABS: HEMATOCRIT. 37.8 % (36.0-48.0); HEMOGLOBIN. 12.7 g/dL (12.0-16.0); MEAN CORPUSCULAR HEMOGLOBIN 27.1 pg (28.0-32.0); MEAN CORPUSCULAR VOLUME 80.4 fL (81.0-99.0); MEAN PLATELET VOLUME 9.2 fl (7.4-10.4); PLATELET 158 x1000/uL (130-400); RED BLOOD CELL COUNT 4.71 mill/uL (4.2-5.4); RED CELL DISTRIBUTION WIDTH 19.1 % (11.6-14.6)
[2022-04-07 06:52] LABS: CHLORIDE 97 mEq/L (98-107)
[2022-04-07 07:07] LABS: TOTAL IRON BINDING CAPACITY 265 ug/dL (250-450)
[2022-04-07 07:32] LABS: VITAMIN B12 SERUM 1168 pg/mL (211-911)
[2022-04-07 08:00] VITALS: BP 139/56
[2022-04-07] MEDS: INSULIN LISPRO 100 UNITS/ML SUBCUT SCH ×4 (09:00→22:18)
[2022-04-07 09:20] LABS: FERRITIN 245 ng/mL (10-291)
[2022-04-07] MEDS: ASPIRIN 81MG EC TABLET PO SCH (09:59)
[2022-04-07] MEDS: LOSARTAN POTASSIUM 50 MG TABLET PO SCH ×2 (09:59→17:21)
[2022-04-07] MEDS: FOLIC ACID 1MG TABLET PO SCH (09:59)
[2022-04-07] MEDS: FUROSEMIDE 20MG TABLET PO SCH (09:59)
[2022-04-07] MEDS: PREDNISONE 10MG TABLET PO SCH (09:59)
[2022-04-07] MEDS: AMLODIPINE 2.5MG TABLET PO SCH ×2 (09:59→21:00)
[2022-04-07] MEDS: FERROUS SULFATE 325MG TABLET PO SCH (11:58)
[2022-04-07 14:39] LABS: BG BASE EXCESS 11.2 mmol/L (-2.0-2.0); BG CARBOXYHEMOGLOBIN 0.7 % (0.5-1.5); BG FRACTION INSPIRED OXYGEN 28; BG HCO3 ACT 38.8 mmol/L (22.0-26.0); BG METHEMOGLOBIN 0.3 % (0.0-1.5); BG PCO2 66.5 mmHg (35.0-45.0); BG PH 7.384 (7.350-7.450); BG PO2 111.7 mmHg (75.0-100.0); BG SAMPLE SITE LEFT BRACHIAL; BG TOTAL HEMOGLOBIN 12.5 g/dL (12.0-18.0); BG VENT MODE NASAL CANNULA
[2022-04-07 14:45] LABS: PLATELET ESTIMATE NORMAL
[2022-04-07 19:57] VITALS: BP 123/53
[2022-04-08] MEDS: BLOOD SUGAR DIAGNOSTIC STRIP TEST SCH ×4 (06:30→21:53)
[2022-04-08 08:00] VITALS: BP 128/68
[2022-04-08] MEDS: INSULIN LISPRO 100 UNITS/ML SUBCUT SCH ×4 (09:00→22:08)
[2022-04-08] MEDS: ASCORBIC ACID 500 MG TABLET PO SCH (10:28)
[2022-04-08] MEDS: FUROSEMIDE 20MG TABLET PO SCH (10:29)
[2022-04-08] MEDS: LOSARTAN POTASSIUM 50 MG TABLET PO SCH ×2 (10:29→17:50)
[2022-04-08] MEDS: FOLIC ACID 1MG TABLET PO SCH (10:29)
[2022-04-08] MEDS: FERROUS SULFATE 325MG TABLET PO SCH (10:29)
[2022-04-08] MEDS: ASPIRIN 81MG EC TABLET PO SCH (10:29)
[2022-04-08] MEDS: PREDNISONE 10MG TABLET PO SCH (10:29)
[2022-04-08] MEDS: AMLODIPINE 2.5MG TABLET PO SCH ×2 (10:30→21:55)
[2022-04-08] MEDS ORDERED: LEVOFLOXACIN 500MG TABLET PO NR (12:15)
[2022-04-08 20:00] VITALS: BP 131/64
[2022-04-09] MEDS: BLOOD SUGAR DIAGNOSTIC STRIP TEST SCH ×4 (07:00→21:35)
[2022-04-09] MEDS: INSULIN LISPRO 100 UNITS/ML SUBCUT SCH ×4 (07:13→21:41)
[2022-04-09 08:00] VITALS: BP 141/73
[2022-04-09] MEDS: FUROSEMIDE 20MG TABLET PO SCH (08:27)
[2022-04-09] MEDS: LOSARTAN POTASSIUM 50 MG TABLET PO SCH ×2 (08:28→16:39)
[2022-04-09] MEDS: ASCORBIC ACID 500 MG TABLET PO SCH (08:29)
[2022-04-09] MEDS: AMLODIPINE 2.5MG TABLET PO SCH ×2 (08:29→21:37)
[2022-04-09] MEDS: PREDNISONE 10MG TABLET PO SCH (08:29)
[2022-04-09] MEDS: ASPIRIN 81MG EC TABLET PO SCH (08:29)
[2022-04-09] MEDS: FERROUS SULFATE 325MG TABLET PO SCH (08:30)
[2022-04-09] MEDS: FOLIC ACID 1MG TABLET PO SCH (08:30)
[2022-04-09] MEDS: LEVOFLOXACIN 250MG TABLET PO SCH (12:00)
[2022-04-09 20:00] VITALS: BP 136/70
[2022-04-10] MEDS: BLOOD SUGAR DIAGNOSTIC STRIP TEST SCH ×4 (06:30→21:00)
[2022-04-10 07:04] LABS: CHLORIDE 94 mEq/L (98-107); HEMATOCRIT. 36.1 % (36.0-48.0); MEAN CORPUSCULAR HEMOGLOBIN 27.2 pg (28.0-32.0); MEAN CORPUSCULAR VOLUME 81.7 fL (81.0-99.0); MEAN PLATELET VOLUME 8.5 fl (7.4-10.4); PLATELET 164 x1000/uL (130-400); RED BLOOD CELL COUNT 4.42 mill/uL (4.2-5.4); RED CELL DISTRIBUTION WIDTH 18.7 % (11.6-14.6)
[2022-04-10] MEDS: INSULIN LISPRO 100 UNITS/ML SUBCUT SCH ×4 (07:54→20:54)
[2022-04-10 08:00] VITALS: BP 142/70
[2022-04-10] MEDS: LOSARTAN POTASSIUM 50 MG TABLET PO SCH ×2 (09:00→17:12)
[2022-04-10] MEDS: ASPIRIN 81MG EC TABLET PO SCH (09:07)
[2022-04-10] MEDS: PREDNISONE 10MG TABLET PO SCH (09:07)
[2022-04-10] MEDS: AMLODIPINE 2.5MG TABLET PO SCH ×2 (09:08→20:47)
[2022-04-10] MEDS: FOLIC ACID 1MG TABLET PO SCH (09:08)
[2022-04-10] MEDS: FUROSEMIDE 20MG TABLET PO SCH (09:08)
[2022-04-10] MEDS: ASCORBIC ACID 500 MG TABLET PO SCH (09:08)
[2022-04-10] MEDS: FERROUS SULFATE 325MG TABLET PO SCH (09:10)
[2022-04-10] MEDS: LEVOFLOXACIN 250MG TABLET PO SCH (11:09)
[2022-04-10] MEDS ORDERED: ALBUTEROL (0.083%) 2.5MG/3ML NEB HHN PRN (13:00)
[2022-04-10] MEDS ORDERED: IPRATROPIUM BROMIDE (0.02%) 0.5MG/2.5ML NEB HHN PRN (13:00)
[2022-04-10 17:55] LABS: PLATELET ESTIMATE NORMAL
[2022-04-10 20:00] VITALS: BP 131/62
[2022-04-11] MEDS: BLOOD SUGAR DIAGNOSTIC STRIP TEST SCH ×4 (06:30→21:01)
[2022-04-11 08:00] VITALS: BP 135/67
[2022-04-11] MEDS: INSULIN LISPRO 100 UNITS/ML SUBCUT SCH ×3 (09:00→21:54)
[2022-04-11] MEDS: LOSARTAN POTASSIUM 50 MG TABLET PO SCH ×2 (09:04→17:39)
[2022-04-11] MEDS: ASPIRIN 81MG EC TABLET PO SCH (09:04)
[2022-04-11] MEDS: ASCORBIC ACID 500 MG TABLET PO SCH (09:04)
[2022-04-11] MEDS: FERROUS SULFATE 325MG TABLET PO SCH (09:04)
[2022-04-11] MEDS: PREDNISONE 10MG TABLET PO SCH (09:04)
[2022-04-11] MEDS: FUROSEMIDE 20MG TABLET PO SCH (09:04)
[2022-04-11] MEDS: FOLIC ACID 1MG TABLET PO SCH (09:04)
[2022-04-11] MEDS: AMLODIPINE 2.5MG TABLET PO SCH ×2 (09:05→20:58)
[2022-04-11 10:46] VITALS: BP 133/86
[2022-04-11] MEDS: LEVOFLOXACIN 250MG TABLET PO SCH (12:46)
[2022-04-11 20:00] VITALS: BP 138/46
[2022-04-12 06:10] LABS: CHLORIDE 96 mEq/L (98-107)
[2022-04-12] MEDS: BLOOD SUGAR DIAGNOSTIC STRIP TEST SCH ×4 (06:45→20:38)
[2022-04-12 06:47] LABS: HEMATOCRIT. 33.8 % (36.0-48.0); HEMOGLOBIN. 11.5 g/dL (12.0-16.0); MEAN CORPUSCULAR HEMOGLOBIN 27.8 pg (28.0-32.0); MEAN CORPUSCULAR VOLUME 81.6 fL (81.0-99.0); MEAN PLATELET VOLUME 8.2 fl (7.4-10.4); PLATELET 157 x1000/uL (130-400); RED BLOOD CELL COUNT 4.14 mill/uL (4.2-5.4); RED CELL DISTRIBUTION WIDTH 18.8 % (11.6-14.6)
[2022-04-12 08:00] VITALS: BP 157/70
[2022-04-12] MEDS: FOLIC ACID 1MG TABLET PO SCH (08:21)
[2022-04-12] MEDS: ASCORBIC ACID 500 MG TABLET PO SCH (08:21)
[2022-04-12] MEDS: FUROSEMIDE 20MG TABLET PO SCH (08:21)
[2022-04-12] MEDS: LOSARTAN POTASSIUM 50 MG TABLET PO SCH ×2 (08:21→16:49)
[2022-04-12] MEDS: AMLODIPINE 2.5MG TABLET PO SCH ×2 (08:21→20:26)
[2022-04-12] MEDS: FERROUS SULFATE 325MG TABLET PO SCH (08:21)
[2022-04-12] MEDS: PREDNISONE 10MG TABLET PO SCH (08:21)
[2022-04-12] MEDS: INSULIN LISPRO 100 UNITS/ML SUBCUT SCH ×5 (08:21→20:38)
[2022-04-12] MEDS: ASPIRIN 81MG EC TABLET PO SCH (08:21)
[2022-04-12] MEDS ORDERED: LACTULOSE 20G/30ML UDC PO SCH (12:00)
[2022-04-12] MEDS: LEVOFLOXACIN 250MG TABLET PO SCH (12:19)
[2022-04-12 19:09] LABS: 25-HYDROXY VITAMIN D3 35 ng/mL (.)
[2022-04-12 20:00] VITALS: BP 143/58
[2022-04-12] MEDS ORDERED: LACTULOSE 20G/30ML UDC PO PRN (21:00)
[2022-04-13] MEDS: BLOOD SUGAR DIAGNOSTIC STRIP TEST SCH ×4 (06:24→20:28)
[2022-04-13 08:00] VITALS: BP 131/62
[2022-04-13] MEDS: INSULIN LISPRO 100 UNITS/ML SUBCUT SCH ×4 (08:26→20:28)
[2022-04-13] MEDS: FOLIC ACID 1MG TABLET PO SCH ×2 (10:59→11:02)
[2022-04-13] MEDS: AMLODIPINE 2.5MG TABLET PO SCH ×2 (11:00→20:27)
[2022-04-13] MEDS: FERROUS SULFATE 325MG TABLET PO SCH (11:02)
[2022-04-13] MEDS: LOSARTAN POTASSIUM 50 MG TABLET PO SCH ×2 (11:02→16:31)
[2022-04-13] MEDS: ASCORBIC ACID 500 MG TABLET PO SCH (11:03)
[2022-04-13] MEDS: PREDNISONE 10MG TABLET PO SCH (11:03)
[2022-04-13] MEDS: FUROSEMIDE 20MG TABLET PO SCH (11:04)
[2022-04-13] MEDS: LEVOFLOXACIN 250MG TABLET PO SCH (11:11)
[2022-04-13] MEDS: ASPIRIN 81MG EC TABLET PO SCH (11:11)
[2022-04-13] MEDS: ACETAMINOPHEN 325MG TABLET PO PRN (13:52)
[2022-04-13 15:08] LABS: PLATELET ESTIMATE NORMAL
[2022-04-13 20:00] VITALS: BP 135/57
[2022-04-14] MEDS: BLOOD SUGAR DIAGNOSTIC STRIP TEST SCH ×4 (06:39→21:00)
[2022-04-14 08:00] VITALS: BP 138/66
[2022-04-14] MEDS: ASPIRIN 81MG EC TABLET PO SCH (08:31)
[2022-04-14] MEDS: AMLODIPINE 2.5MG TABLET PO SCH ×2 (08:31→21:08)
[2022-04-14] MEDS: FUROSEMIDE 20MG TABLET PO SCH (08:31)
[2022-04-14] MEDS: FERROUS SULFATE 325MG TABLET PO SCH (08:31)
[2022-04-14] MEDS: ASCORBIC ACID 500 MG TABLET PO SCH (08:31)
[2022-04-14] MEDS: PREDNISONE 10MG TABLET PO SCH (08:31)
[2022-04-14] MEDS: LOSARTAN POTASSIUM 50 MG TABLET PO SCH ×2 (08:31→17:27)
[2022-04-14] MEDS: INSULIN LISPRO 100 UNITS/ML SUBCUT SCH ×4 (08:34→21:00)
[2022-04-14] MEDS: LEVOFLOXACIN 250MG TABLET PO SCH (10:42)
[2022-04-14 11:09] LABS: HEMOGLOBIN. 11.8 g/dL (12.0-16.0); MEAN CORPUSCULAR HEMOGLOBIN 27.3 pg (28.0-32.0); MEAN CORPUSCULAR VOLUME 80.8 fL (81.0-99.0); MEAN PLATELET VOLUME 8.1 fl (7.4-10.4); PLATELET 192 x1000/uL (130-400); RED BLOOD CELL COUNT 4.33 mill/uL (4.2-5.4)
[2022-04-14 11:28] LABS: CHLORIDE 94 mEq/L (98-107)
[2022-04-14 20:00] VITALS: BP 132/56
[2022-04-15 06:26] LABS: CHLORIDE 96 mEq/L (98-107)
[2022-04-15] MEDS: BLOOD SUGAR DIAGNOSTIC STRIP TEST SCH ×4 (06:30→21:00)
[2022-04-15] MEDS: INSULIN LISPRO 100 UNITS/ML SUBCUT SCH ×4 (06:39→21:00)
[2022-04-15 08:00] VITALS: BP 148/70
[2022-04-15 08:19] LABS: HEMATOCRIT. 34.5 % (36.0-48.0); HEMOGLOBIN. 11.5 g/dL (12.0-16.0); MEAN CORPUSCULAR HEMOGLOBIN 27.3 pg (28.0-32.0); MEAN CORPUSCULAR VOLUME 81.5 fL (81.0-99.0); MEAN PLATELET VOLUME 8.7 fl (7.4-10.4); PLATELET 184 x1000/uL (130-400); RED BLOOD CELL COUNT 4.24 mill/uL (4.2-5.4); RED CELL DISTRIBUTION WIDTH 18.6 % (11.6-14.6)
[2022-04-15] MEDS: FERROUS SULFATE 325MG TABLET PO SCH (08:21)
[2022-04-15] MEDS: LOSARTAN POTASSIUM 50 MG TABLET PO SCH ×2 (08:21→17:18)
[2022-04-15] MEDS: AMLODIPINE 2.5MG TABLET PO SCH ×2 (08:21→21:51)
[2022-04-15] MEDS: FUROSEMIDE 20MG TABLET PO SCH (08:21)
[2022-04-15] MEDS: PREDNISONE 10MG TABLET PO SCH (08:22)
[2022-04-15] MEDS: ASCORBIC ACID 500 MG TABLET PO SCH (08:22)
[2022-04-15] MEDS: ASPIRIN 81MG EC TABLET PO SCH (08:22)
[2022-04-15] MEDS: FOLIC ACID 1MG TABLET PO SCH (08:22)
[2022-04-15 13:43] LABS: PLATELET ESTIMATE NORMAL
[2022-04-15 15:42] LABS: PLATELET ESTIMATE NORMAL
[2022-04-15] MEDS ORDERED: CEFTRIAXONE 2 G PREMIX 50 ML IV SCH (17:15)
[2022-04-15 20:00] VITALS: BP 122/49
[2022-04-15] MEDS: CEFTRIAXONE 2 G in DEXTROSE 5% WATER 50 ML IV SCH (20:55)
[2022-04-15] MEDS: METRONIDAZOLE 500MG TABLET PO SCH (21:51)
[2022-04-16] MEDS: METRONIDAZOLE 500MG TABLET PO SCH ×3 (06:00→22:05)
[2022-04-16] MEDS: BLOOD SUGAR DIAGNOSTIC STRIP TEST SCH ×4 (06:12→21:00)
[2022-04-16] MEDS: INSULIN LISPRO 100 UNITS/ML SUBCUT SCH ×4 (06:12→22:09)
[2022-04-16 06:24] LABS: CHLORIDE 95 mEq/L (98-107)
[2022-04-16 06:33] LABS: CREATINE KINASE 45 IU/L (26-192)
[2022-04-16 06:42] LABS: HEMOGLOBIN. 11.8 g/dL (12.0-16.0); MEAN CORPUSCULAR HEMOGLOBIN 27.8 pg (28.0-32.0); MEAN PLATELET VOLUME 8.4 fl (7.4-10.4); PLATELET 195 x1000/uL (130-400); RED BLOOD CELL COUNT 4.26 mill/uL (4.2-5.4)
[2022-04-16 08:00] VITALS: BP 140/69
[2022-04-16] MEDS: FUROSEMIDE 20MG TABLET PO SCH (10:18)
[2022-04-16] MEDS: LOSARTAN POTASSIUM 50 MG TABLET PO SCH ×2 (10:18→17:08)
[2022-04-16] MEDS: ASPIRIN 81MG EC TABLET PO SCH (10:18)
[2022-04-16] MEDS: FERROUS SULFATE 325MG TABLET PO SCH (10:18)
[2022-04-16] MEDS: AMLODIPINE 2.5MG TABLET PO SCH ×2 (10:19→22:11)
[2022-04-16] MEDS: ASCORBIC ACID 500 MG TABLET PO SCH (10:19)
[2022-04-16] MEDS: FOLIC ACID 1MG TABLET PO SCH (10:19)
[2022-04-16] MEDS: ERGOCALCIFEROL 50000UNITS CAPSULE PO SCH (14:24)
[2022-04-16] MEDS: CEFTRIAXONE 2 G in DEXTROSE 5% WATER 50 ML IV SCH (17:09)
[2022-04-16 19:54] VITALS: BP 141/59
[2022-04-16 22:11] LABS: PLATELET ESTIMATE NORMAL
[2022-04-17] MEDS: BLOOD SUGAR DIAGNOSTIC STRIP TEST SCH ×4 (06:45→21:38)
[2022-04-17] MEDS: METRONIDAZOLE 500MG TABLET PO SCH ×3 (06:50→22:56)
[2022-04-17 08:00] VITALS: BP 119/51
[2022-04-17] MEDS: ASCORBIC ACID 500 MG TABLET PO SCH (08:48)
[2022-04-17] MEDS: FUROSEMIDE 20MG TABLET PO SCH (08:48)
[2022-04-17] MEDS: ASPIRIN 81MG EC TABLET PO SCH (08:48)
[2022-04-17] MEDS: LOSARTAN POTASSIUM 50 MG TABLET PO SCH ×2 (08:48→17:00)
[2022-04-17] MEDS: AMLODIPINE 2.5MG TABLET PO SCH ×2 (08:49→21:00)
[2022-04-17] MEDS: FOLIC ACID 1MG TABLET PO SCH (08:49)
[2022-04-17] MEDS: FERROUS SULFATE 325MG TABLET PO SCH (08:49)
[2022-04-17] MEDS: INSULIN LISPRO 100 UNITS/ML SUBCUT SCH ×4 (08:53→21:00)
[2022-04-17] MEDS: CEFTRIAXONE 2 G in DEXTROSE 5% WATER 50 ML IV SCH (18:12)
[2022-04-17 19:38] VITALS: BP 139/69
[2022-04-18] MEDS: METRONIDAZOLE 500MG TABLET PO SCH ×3 (06:50→21:21)
[2022-04-18 06:53] LABS: CHLORIDE 97 mEq/L (98-107)
[2022-04-18 06:53] LABS: HEMATOCRIT. 30.6 % (36.0-48.0); HEMOGLOBIN. 10.6 g/dL (12.0-16.0); MEAN CORPUSCULAR HEMOGLOBIN 28.1 pg (28.0-32.0); MEAN CORPUSCULAR VOLUME 80.8 fL (81.0-99.0); MEAN PLATELET VOLUME 8.1 fl (7.4-10.4); PLATELET 156 x1000/uL (130-400); RED BLOOD CELL COUNT 3.79 mill/uL (4.2-5.4); RED CELL DISTRIBUTION WIDTH 18.6 % (11.6-14.6)
[2022-04-18] MEDS: BLOOD SUGAR DIAGNOSTIC STRIP TEST SCH ×4 (07:06→20:29)
[2022-04-18] MEDS: INSULIN LISPRO 100 UNITS/ML SUBCUT SCH ×4 (07:07→21:00)
[2022-04-18 08:13] VITALS: BP 146/51
[2022-04-18] MEDS: AMLODIPINE 2.5MG TABLET PO SCH ×2 (08:42→21:21)
[2022-04-18] MEDS: ASPIRIN 81MG EC TABLET PO SCH (08:42)
[2022-04-18] MEDS: LOSARTAN POTASSIUM 50 MG TABLET PO SCH ×2 (08:42→17:15)
[2022-04-18] MEDS: FUROSEMIDE 20MG TABLET PO SCH (08:42)
[2022-04-18] MEDS: ASCORBIC ACID 500 MG TABLET PO SCH (08:43)
[2022-04-18] MEDS: FOLIC ACID 1MG TABLET PO SCH (08:46)
[2022-04-18] MEDS: FERROUS SULFATE 325MG TABLET PO SCH (08:46)
[2022-04-18] MEDS: FLUOXETINE HCL 10 MG CAPSULE PO SCH (08:50)
[2022-04-18 13:50] LABS: PLATELET ESTIMATE NORMAL
[2022-04-18] MEDS: CEFTRIAXONE 2 G in DEXTROSE 5% WATER 50 ML IV SCH (18:01)
[2022-04-18 20:00] VITALS: BP 110/54
[2022-04-19] MEDS: METRONIDAZOLE 500MG TABLET PO SCH ×3 (05:27→22:23)
[2022-04-19] MEDS: BLOOD SUGAR DIAGNOSTIC STRIP TEST SCH ×4 (05:30→21:00)
[2022-04-19 08:00] VITALS: BP 116/52
[2022-04-19] MEDS: FERROUS SULFATE 325MG TABLET PO SCH (08:43)
[2022-04-19] MEDS: FUROSEMIDE 20MG TABLET PO SCH (08:43)
[2022-04-19] MEDS: ASCORBIC ACID 500 MG TABLET PO SCH (08:44)
[2022-04-19] MEDS: LOSARTAN POTASSIUM 50 MG TABLET PO SCH ×2 (08:44→17:42)
[2022-04-19] MEDS: FLUOXETINE HCL 10 MG CAPSULE PO SCH (08:44)
[2022-04-19] MEDS: FOLIC ACID 1MG TABLET PO SCH (08:44)
[2022-04-19] MEDS: INSULIN LISPRO 100 UNITS/ML SUBCUT SCH ×4 (08:44→21:00)
[2022-04-19] MEDS: AMLODIPINE 2.5MG TABLET PO SCH ×2 (08:44→22:23)
[2022-04-19] MEDS: ASPIRIN 81MG EC TABLET PO SCH (08:44)
[2022-04-19] MEDS: CEFTRIAXONE 2 G in DEXTROSE 5% WATER 50 ML IV SCH (17:42)
[2022-04-19 19:49] VITALS: BP 140/56
[2022-04-20] MEDS: METRONIDAZOLE 500MG TABLET PO SCH ×3 (06:34→22:00)
[2022-04-20] MEDS: BLOOD SUGAR DIAGNOSTIC STRIP TEST SCH ×4 (06:35→21:00)
[2022-04-20 08:00] VITALS: BP 132/63
[2022-04-20] MEDS: ASCORBIC ACID 500 MG TABLET PO SCH (08:53)
[2022-04-20] MEDS: FERROUS SULFATE 325MG TABLET PO SCH (08:53)
[2022-04-20] MEDS: FUROSEMIDE 20MG TABLET PO SCH (08:53)
[2022-04-20] MEDS: FOLIC ACID 1MG TABLET PO SCH (08:53)
[2022-04-20] MEDS: LOSARTAN POTASSIUM 50 MG TABLET PO SCH ×2 (08:53→17:17)
[2022-04-20] MEDS: FLUOXETINE HCL 10 MG CAPSULE PO SCH (08:53)
[2022-04-20] MEDS: ASPIRIN 81MG EC TABLET PO SCH (08:53)
[2022-04-20] MEDS: AMLODIPINE 2.5MG TABLET PO SCH ×2 (08:53→22:00)
[2022-04-20] MEDS: INSULIN LISPRO 100 UNITS/ML SUBCUT SCH ×4 (09:00→22:04)
[2022-04-20] MEDS: CEFTRIAXONE 2 G in DEXTROSE 5% WATER 50 ML IV SCH (17:17)
[2022-04-20 20:00] VITALS: BP 129/63
[2022-04-21] MEDS: BLOOD SUGAR DIAGNOSTIC STRIP TEST SCH ×4 (06:30→21:06)
[2022-04-21 08:00] VITALS: BP 104/49
[2022-04-21] MEDS: INSULIN LISPRO 100 UNITS/ML SUBCUT SCH ×4 (09:00→21:38)
[2022-04-21] MEDS: LOSARTAN POTASSIUM 50 MG TABLET PO SCH ×2 (09:00→17:37)
[2022-04-21] MEDS: AMLODIPINE 2.5MG TABLET PO SCH ×2 (09:00→21:33)
[2022-04-21] MEDS: FOLIC ACID 1MG TABLET PO SCH (10:43)
[2022-04-21] MEDS: FERROUS SULFATE 325MG TABLET PO SCH (10:43)
[2022-04-21] MEDS: ASPIRIN 81MG EC TABLET PO SCH (10:43)
[2022-04-21] MEDS: FLUOXETINE HCL 10 MG CAPSULE PO SCH (10:44)
[2022-04-21] MEDS: FUROSEMIDE 20MG TABLET PO SCH (10:44)
[2022-04-21] MEDS: ASCORBIC ACID 500 MG TABLET PO SCH (10:44)
[2022-04-21] MEDS: METRONIDAZOLE 500MG TABLET PO SCH ×2 (14:00→21:32)
[2022-04-21] MEDS: CEFTRIAXONE 2 G in DEXTROSE 5% WATER 50 ML IV SCH (18:12)
[2022-04-21 20:12] VITALS: BP 146/71
[2022-04-22] MEDS: ACETAMINOPHEN 325MG TABLET PO PRN (05:38)
[2022-04-22] MEDS: BLOOD SUGAR DIAGNOSTIC STRIP TEST SCH ×4 (05:40→20:54)
[2022-04-22] MEDS: METRONIDAZOLE 500MG TABLET PO SCH ×3 (05:40→20:54)
[2022-04-22 08:00] VITALS: BP 131/49
[2022-04-22] MEDS: FLUOXETINE HCL 10 MG CAPSULE PO SCH (09:00)
[2022-04-22] MEDS: AMLODIPINE 2.5MG TABLET PO SCH ×2 (09:00→20:54)
[2022-04-22] MEDS: ASPIRIN 81MG EC TABLET PO SCH (09:00)
[2022-04-22] MEDS: FOLIC ACID 1MG TABLET PO SCH (09:00)
[2022-04-22] MEDS: FUROSEMIDE 20MG TABLET PO SCH (09:00)
[2022-04-22] MEDS: ASCORBIC ACID 500 MG TABLET PO SCH (09:00)
[2022-04-22] MEDS: FERROUS SULFATE 325MG TABLET PO SCH (09:00)
[2022-04-22] MEDS: INSULIN LISPRO 100 UNITS/ML SUBCUT SCH ×4 (09:00→20:55)
[2022-04-22] MEDS: LOSARTAN POTASSIUM 50 MG TABLET PO SCH ×2 (09:00→17:00)
[2022-04-22] MEDS: CEFTRIAXONE 2 G in DEXTROSE 5% WATER 50 ML IV SCH (19:19)
[2022-04-22 20:00] VITALS: BP 113/65
[2022-04-23] MEDS: METRONIDAZOLE 500MG TABLET PO SCH ×3 (06:00→21:23)
[2022-04-23 07:01] LABS: BASOPHILS % 0.2 % (0.0-2.0); EOSINOPHILS % 1.1 % (0.0-5.0); HEMATOCRIT. 26.5 % (36.0-48.0); LYMPHOCYTES % 7.5 % (20.0-50.0); MEAN CORPUSCULAR HEMOGLOBIN 27.7 pg (28.0-32.0); MEAN CORPUSCULAR VOLUME 81.4 fL (81.0-99.0); MEAN PLATELET VOLUME 8.4 fl (7.4-10.4); MONOCYTES % 10.1 % (2.0-8.0); NEUTROPHILS % 81.1 % (40.0-76.0); PLATELET 190 x1000/uL (130-400); RED BLOOD CELL COUNT 3.25 mill/uL (4.2-5.4); RED CELL DISTRIBUTION WIDTH 18.5 % (11.6-14.6)
[2022-04-23] MEDS: BLOOD SUGAR DIAGNOSTIC STRIP TEST SCH ×4 (07:01→21:21)
[2022-04-23 08:00] VITALS: BP 128/60
[2022-04-23 08:26] LABS: CHLORIDE 99 mEq/L (98-107)
[2022-04-23] MEDS: INSULIN LISPRO 100 UNITS/ML SUBCUT SCH ×4 (09:00→21:00)
[2022-04-23] MEDS: AMLODIPINE 2.5MG TABLET PO SCH ×2 (09:55→21:00)
[2022-04-23] MEDS: LOSARTAN POTASSIUM 50 MG TABLET PO SCH ×2 (09:55→17:23)
[2022-04-23] MEDS: ASPIRIN 81MG EC TABLET PO SCH (09:55)
[2022-04-23] MEDS: FLUOXETINE HCL 20MG CAPSULE PO SCH (09:55)
[2022-04-23] MEDS: FUROSEMIDE 20MG TABLET PO SCH (09:55)
[2022-04-23] MEDS: ASCORBIC ACID 500 MG TABLET PO SCH (09:57)
[2022-04-23] MEDS: FOLIC ACID 1MG TABLET PO SCH (09:57)
[2022-04-23] MEDS: FERROUS SULFATE 325MG TABLET PO SCH (09:57)
[2022-04-23] MEDS: ERGOCALCIFEROL 50000UNITS CAPSULE PO SCH (14:15)
[2022-04-23] MEDS: CEFTRIAXONE 2 G in DEXTROSE 5% WATER 50 ML IV SCH (18:42)
[2022-04-23 20:00] VITALS: BP 118/57
[2022-04-24] MEDS: BLOOD SUGAR DIAGNOSTIC STRIP TEST SCH ×4 (05:50→21:00)
[2022-04-24] MEDS: METRONIDAZOLE 500MG TABLET PO SCH ×3 (05:51→22:06)
[2022-04-24 08:00] VITALS: BP 110/50
[2022-04-24] MEDS: FUROSEMIDE 20MG TABLET PO SCH (08:13)
[2022-04-24] MEDS: LOSARTAN POTASSIUM 50 MG TABLET PO SCH ×2 (08:13→17:15)
[2022-04-24] MEDS: FLUOXETINE HCL 20MG CAPSULE PO SCH (08:13)
[2022-04-24] MEDS: ASPIRIN 81MG EC TABLET PO SCH (08:13)
[2022-04-24] MEDS: FERROUS SULFATE 325MG TABLET PO SCH (08:13)
[2022-04-24] MEDS: FOLIC ACID 1MG TABLET PO SCH (08:13)
[2022-04-24] MEDS: ASCORBIC ACID 500 MG TABLET PO SCH (08:13)
[2022-04-24] MEDS: AMLODIPINE 2.5MG TABLET PO SCH ×2 (08:14→22:06)
[2022-04-24] MEDS: INSULIN LISPRO 100 UNITS/ML SUBCUT SCH ×4 (09:00→21:00)
[2022-04-24] MEDS: CEFTRIAXONE 2 G in DEXTROSE 5% WATER 50 ML IV SCH (17:59)
[2022-04-24 19:45] VITALS: BP 142/67
[2022-04-25] MEDS: INSULIN LISPRO 100 UNITS/ML SUBCUT SCH ×4 (06:44→21:00)
[2022-04-25] MEDS: BLOOD SUGAR DIAGNOSTIC STRIP TEST SCH ×4 (06:44→21:02)
[2022-04-25] MEDS: METRONIDAZOLE 500MG TABLET PO SCH ×3 (06:45→21:02)
[2022-04-25 08:20] VITALS: BP 119/64
[2022-04-25] MEDS: FERROUS SULFATE 325MG TABLET PO SCH (10:24)
[2022-04-25] MEDS: ASCORBIC ACID 500 MG TABLET PO SCH (10:24)
[2022-04-25] MEDS: AMLODIPINE 2.5MG TABLET PO SCH ×2 (10:26→20:56)
[2022-04-25] MEDS: ASPIRIN 81MG EC TABLET PO SCH (10:26)
[2022-04-25] MEDS: FLUOXETINE HCL 20MG CAPSULE PO SCH (10:26)
[2022-04-25] MEDS: FOLIC ACID 1MG TABLET PO SCH (10:26)
[2022-04-25] MEDS: FUROSEMIDE 20MG TABLET PO SCH (10:27)
[2022-04-25] MEDS: LOSARTAN POTASSIUM 50 MG TABLET PO SCH ×2 (10:27→17:00)
[2022-04-25] MEDS: CEFTRIAXONE 2 G in DEXTROSE 5% WATER 50 ML IV SCH (18:24)
[2022-04-25 20:00] VITALS: BP 145/56
[2022-04-26] MEDS: METRONIDAZOLE 500MG TABLET PO SCH ×3 (05:11→21:09)
[2022-04-26] MEDS: BLOOD SUGAR DIAGNOSTIC STRIP TEST SCH ×4 (05:31→21:08)
[2022-04-26] MEDS: INSULIN LISPRO 100 UNITS/ML SUBCUT SCH ×4 (05:32→21:00)
[2022-04-26 08:00] VITALS: BP 112/54
[2022-04-26] MEDS: FOLIC ACID 1MG TABLET PO SCH (09:54)
[2022-04-26] MEDS: FERROUS SULFATE 325MG TABLET PO SCH (09:55)
[2022-04-26] MEDS: ASPIRIN 81MG EC TABLET PO SCH (09:55)
[2022-04-26] MEDS: ASCORBIC ACID 500 MG TABLET PO SCH (09:55)
[2022-04-26] MEDS: FUROSEMIDE 20MG TABLET PO SCH (09:55)
[2022-04-26] MEDS: LOSARTAN POTASSIUM 50 MG TABLET PO SCH ×2 (09:55→17:15)
[2022-04-26] MEDS: AMLODIPINE 2.5MG TABLET PO SCH ×2 (09:55→21:09)
[2022-04-26] MEDS: FLUOXETINE HCL 20MG CAPSULE PO SCH (09:55)
[2022-04-26] MEDS: CEFTRIAXONE 2 G in DEXTROSE 5% WATER 50 ML IV SCH (18:43)
[2022-04-26 19:43] VITALS: BP 140/71
[2022-04-27] MEDS: BLOOD SUGAR DIAGNOSTIC STRIP TEST SCH ×2 (06:44→11:15)
[2022-04-27] MEDS: METRONIDAZOLE 500MG TABLET PO SCH ×2 (06:50→14:32)
[2022-04-27 08:00] VITALS: BP 121/60
[2022-04-27] MEDS: INSULIN LISPRO 100 UNITS/ML SUBCUT SCH ×2 (09:00→13:00)
[2022-04-27] MEDS: ASCORBIC ACID 500 MG TABLET PO SCH (09:47)
[2022-04-27] MEDS: FERROUS SULFATE 325MG TABLET PO SCH (09:48)
[2022-04-27] MEDS: LOSARTAN POTASSIUM 50 MG TABLET PO SCH ×2 (09:48→17:36)
[2022-04-27] MEDS: FUROSEMIDE 20MG TABLET PO SCH (09:48)
[2022-04-27] MEDS: FLUOXETINE HCL 20MG CAPSULE PO SCH (09:48)
[2022-04-27] MEDS: ASPIRIN 81MG EC TABLET PO SCH (09:48)
[2022-04-27] MEDS: FOLIC ACID 1MG TABLET PO SCH (09:48)
[2022-04-27] MEDS: AMLODIPINE 2.5MG TABLET PO SCH (09:48)
[2022-04-27 18:23] VITALS: BP 121/60
== END 2022-04-27 18:55 | DRG 951 ==
PROVIDERS: ADMIT Physical Medicine & Rehabilitation Spinal Cord Injury Medicine; ATTEND Internal Medicine
PROC: 5A09357 Assistance with Respiratory Ventilation, Less than 24 Consecutive Hours, Continuous Positive Airway Pressure (ICD-10-PCS; 2022-04-14)
PROC: 5A09357 Assistance with Respiratory Ventilation, Less than 24 Consecutive Hours, Continuous Positive Airway Pressure (ICD-10-PCS; 2022-04-15)
PROC: 0QB10ZZ Excision of Sacrum, Open Approach (ICD-10-PCS; principal; 2022-04-16)
PROC: 5A09357 Assistance with Respiratory Ventilation, Less than 24 Consecutive Hours, Continuous Positive Airway Pressure (ICD-10-PCS; 2022-04-16)
PROC: 5A09357 Assistance with Respiratory Ventilation, Less than 24 Consecutive Hours, Continuous Positive Airway Pressure (ICD-10-PCS; 2022-04-17)
PROC: 5A09357 Assistance with Respiratory Ventilation, Less than 24 Consecutive Hours, Continuous Positive Airway Pressure (ICD-10-PCS; 2022-04-18)
PROC: 5A09357 Assistance with Respiratory Ventilation, Less than 24 Consecutive Hours, Continuous Positive Airway Pressure (ICD-10-PCS; 2022-04-19)
PROC: 5A09357 Assistance with Respiratory Ventilation, Less than 24 Consecutive Hours, Continuous Positive Airway Pressure (ICD-10-PCS; 2022-04-20)
PROC: 5A09357 Assistance with Respiratory Ventilation, Less than 24 Consecutive Hours, Continuous Positive Airway Pressure (ICD-10-PCS; 2022-04-21)
PROC: 0QB10ZZ Excision of Sacrum, Open Approach (ICD-10-PCS; 2022-04-23)
PROC: 5A09357 Assistance with Respiratory Ventilation, Less than 24 Consecutive Hours, Continuous Positive Airway Pressure (ICD-10-PCS; 2022-04-23)
PROC: 5A09357 Assistance with Respiratory Ventilation, Less than 24 Consecutive Hours, Continuous Positive Airway Pressure (ICD-10-PCS; 2022-04-24)
DX: G93.41 Metabolic encephalopathy (principal); J96.21 Acute and chronic respiratory failure with hypoxia; A41.9 Sepsis, unspecified organism; L89.154 Pressure ulcer of sacral region, stage 4; I50.23 Acute on chronic systolic (congestive) heart failure; N17.9 Acute kidney failure, unspecified; E46 Unspecified protein-calorie malnutrition; I27.0 Primary pulmonary hypertension; F03.93 Unspecified dementia, unspecified severity, with mood disturbance; G82.20 Paraplegia, unspecified; I11.0 Hypertensive heart disease with heart failure; E55.9 Vitamin D deficiency, unspecified; B95.2 Enterococcus as the cause of diseases classified elsewhere; B96.89 Other specified bacterial agents as the cause of diseases classified elsewhere; E61.1 Iron deficiency; F32.9 Major depressive disorder, single episode, unspecified; H90.5 Unspecified sensorineural hearing loss; I25.10 Atherosclerotic heart disease of native coronary artery without angina pectoris; I25.2 Old myocardial infarction; I42.0 Dilated cardiomyopathy; I70.0 Atherosclerosis of aorta; J44.1 Chronic obstructive pulmonary disease with (acute) exacerbation; J96.22 Acute and chronic respiratory failure with hypercapnia; J98.11 Atelectasis; K52.89 Other specified noninfective gastroenteritis and colitis; K56.41 Fecal impaction; M48.061 Spinal stenosis, lumbar region without neurogenic claudication; N39.0 Urinary tract infection, site not specified; N81.10 Cystocele, unspecified; M46.28 Osteomyelitis of vertebra, sacral and sacrococcygeal region; R59.0 Localized enlarged lymph nodes; R49.0 Dysphonia; Z60.2 Problems related to living alone; R26.9 Unspecified abnormalities of gait and mobility; R53.81 Other malaise; R47.1 Dysarthria and anarthria; I08.1 Rheumatic disorders of both mitral and tricuspid valves; Z53.1 Procedure and treatment not carried out because of patient's decision for reasons of belief and group pressure; R13.10 Dysphagia, unspecified; Z74.01 Bed confinement status; Z82.49 Family history of ischemic heart disease and other diseases of the circulatory system; Z91.81 History of falling; Z87.891 Personal history of nicotine dependence; Z79.82 Long term (current) use of aspirin; Z68.23 Body mass index [BMI] 23.0-23.9, adult; Z95.810 Presence of automatic (implantable) cardiac defibrillator
CPT/HCPCS: 36415; 36600; 71045; 72131; 74176; 80048; 80053; 81003; 82040; 82306; 82375; 82550; 82607; 82728; 82805; 82962; 83036; 83540; 83550; 84134; 84145; 84443; 85025; 85651; 87070; 87077; 87186; 87426; 92523; 92610; 93970; 94660; 97110; 97112; 97116; 97162; 97166; 97530; 97535; A6261; C1893; J0696; J1815; J7060; J7512; A4315; A5200